=== PATIENT | female | born 1955 | race Caucasian/White ===

== ENCOUNTER 2016-07-20 08:55 | Day surgery (SDC) | payer OTHER ==
[2016-07-20] MEDS ORDERED: LIDOCAINE 2% MDV (20MG/ML) 20ML VIAL IV ONE (14:00)
[2016-07-20] MEDS ORDERED: PROPOFOL 10 MG/ML VIAL IV ONE (14:00)
--- NOTE | 2016-07-20 15:09 | Operative Note ---
DATE OF SURGERY: 07/20/2016. DICTATING FIRST FRONT VENTILATOR: Kalen Motley D.O. dictating for Hugo Cobb D.O. PREOPERATIVE INDICATION: This is a 61-year-old female with a history of colon polyps undergoing surveillance colonoscopy. PROCEDURE: Colonoscopy with biopsy. ENDOSCOPIST: Hugo Cobb D.O. FIRST FRONT VENTILATOR: Kalen Motley D.O. ANESTHESIA: Anesthesia was provided by the Anesthesia Department. COMPLICATIONS: None. QUALITY OF PREPARATION: Good. PROCEDURE: The procedure was thoroughly explained to the patient including risks, benefits, and alternatives. The patient had an opportunity to have her questions answered and sign the informed written consent. The patient was transported to the endoscopy suite and placed in the left lateral decubitus position. A digital rectal examination was performed with no abnormalities felt. Good anal sphincter tone. A well-lubricated PCF-180 colonoscope was inserted into the rectum and advanced to the cecum under direct visualization. The appendiceal orifice and ileocecal valve were identified. The colon was again evaluated in detail as the colonoscope was withdrawn. There was normal mucosa throughout the colon with the exception of two diminutive polyps in the sigmoid colon, removed completely and retrieved with cold forceps for pathology. Retroflexion was performed in the rectum with no abnormalities seen. The colonoscope was straightened, the rectum was decompressed, and the colonoscope withdrawn. The patient tolerated the procedure well and will be transported to Recovery in stable condition. Findings of the examination will be discussed with the patient in Recovery. RECOMMENDATIONS: 1. Await colon polyp pathology. 2. Repeat colonoscopy in five years pending pathology. HUGO COBB D.O. Date Time cc: Toni Shen [facility] Job Number: [id number] MTDD
== END 2016-07-20 11:00 | disposition home or self-care (01) ==
LOC: HOP 08:55
PROVIDERS: ATTEND Internal Medicine Gastroenterology
DX: Z86.010 Personal history of colon polyps (principal); K63.5 Polyp of colon; E03.9 Hypothyroidism, unspecified